=== PATIENT | female | born 1990 | race African-American/Black ===

== ENCOUNTER 2021-06-24 19:00 | Inpatient (IN) | payer OTHER ==
[2021-06-24] MEDS ORDERED: DINOPROSTONE 10 MG VAGINAL SUPPOSITORY VG ONE (20:30)
[2021-06-24 23:00] VITALS: BMI 32.0
[2021-06-25] MEDS: ELECTROLYTE-148 SOLN 1,000 ML IV SCH (04:00)
[2021-06-25] MEDS ORDERED: AMPICILLIN - 2 GM in SODIUM CHLORIDE 100 ML IVPB ONE (08:22)
[2021-06-25] MEDS ORDERED: OXYTOCIN 30 UNITS in 0.9% NS 30 UNIT/500 ML INFUS.BAG IVPB SCH (08:30)
[2021-06-25] MEDS ORDERED: AMPICILLIN SODIUM 2 GM VIAL ONE (08:41)
[2021-06-25] MEDS ORDERED: OXYTOCIN 30 UNITS in 0.9% NS 30 UNIT/500 ML INFUS.BAG IVPB ONE (08:41)
[2021-06-25] MEDS ORDERED: AMPICILLIN SODIUM 1 GM VIAL ONE ×2 (12:54→17:12)
[2021-06-25] MEDS: AMPICILLIN - 1 GM in SODIUM CHLORIDE 100 ML IVPB SCH ×2 (13:00→17:20)
[2021-06-25] MEDS ORDERED: BUPIVACAINE HCL/PF 0.25% (2.5MG/ML) 10 ML VIAL ONE (15:21)
[2021-06-25] MEDS ORDERED: FENTANYL/BUPIVACAINE/NS/PF - PCEA - 50 ML DISP.SYRIN EP ONE (15:23)
[2021-06-25] MEDS ORDERED: NALOXONE HCL 0.4 MG/ML VIAL IVPUSH PRN (15:48)
[2021-06-25] MEDS ORDERED: FENTANYL/BUPIVACAINE/NS/PF - PCEA - 50 ML DISP.SYRIN EP SCH (16:00)
[2021-06-25] MEDS ORDERED: LIDOCAINE 1%/EPI 1:100000 (20 ML MULTI DOSE VIAL) ONE (20:44)
[2021-06-25] MEDS ORDERED: PHENYLEPHRINE HCL 10 MG/1 ML SINGLE DOSE VIAL ONE (20:45)
[2021-06-25] MEDS ORDERED: LIDOCAINE HCL/PF 2% SDV 5ML VIAL ONE ×6 (20:47→21:44)
[2021-06-25] MEDS ORDERED: KETAMINE HCL 500 MG/10 ML VIAL ONE (21:03)
[2021-06-25] MEDS ORDERED: MIDAZOLAM HCL 2 MG/2 ML SINGLE DOSE VIAL ONE (21:12)
[2021-06-25] MEDS ORDERED: PROPOFOL 20 ML ONE ×2 (21:41→21:52)
[2021-06-25] MEDS ORDERED: oxyCODONE HCL 5 MG TABLET PO PRN (21:43)
[2021-06-25] MEDS ORDERED: IBUPROFEN 600 MG TABLET (FP) PO PRN ×2 (21:43→21:55)
[2021-06-25] MEDS ORDERED: SENNOSIDES/DOCUSATE COMBO (SENNA PLUS) TABLET (UD) PO PRN (21:43)
[2021-06-25] MEDS ORDERED: ACETAMINOPHEN 325 MG TABLET (FP) PO PRN ×2 (21:43→21:55)
[2021-06-25] MEDS ORDERED: ACETAMINOPHEN 1000 MG/100 ML VIAL IVPB PRN (21:43)
[2021-06-25] MEDS ORDERED: SIMETHICONE 80 MG TAB.CHEW (FP) PO PRN (21:43)
[2021-06-25] MEDS ORDERED: ONDANSETRON 4 MG/2 ML VIAL IVPB PRN (21:43)
[2021-06-25] MEDS ORDERED: LIDOCAINE HCL 4% TOPICAL SOLN (50 ML/BOTTLE) ONE (21:44)
[2021-06-25] MEDS ORDERED: OXYTOCIN 10 UNITS/ML VIAL ONE ×4 (21:45)
[2021-06-25] MEDS ORDERED: OXYTOCIN 20 UNITS in 0.9% NS 20 UNIT/1,000 ML INFUS.BAG IV SCH (21:45)
[2021-06-25] MEDS ORDERED: ONDANSETRON 4 MG/2 ML VIAL IVPUSH PRN (21:55)
[2021-06-25] MEDS: IBUPROFEN 800 MG/8 ML IJ IVPB PRN (22:00)
[2021-06-25] MEDS ORDERED: IBUPROFEN 800 MG/8 ML IJ IVPB ONE (22:08)
[2021-06-25] MEDS ORDERED: OXYTOCIN 20 UNITS in 0.9% NS 20 UNIT/1,000 ML INFUS.BAG IV ONE (22:09)
[2021-06-26] MEDS: AMPICILLIN - 1 GM in SODIUM CHLORIDE 100 ML IVPB SCH ×2 (01:45→01:46)
[2021-06-26] MEDS: ELECTROLYTE-148 SOLN 1,000 ML IV SCH (01:49)
[2021-06-26] MEDS: CEFAZOLIN 2 GM in SODIUM CHLORIDE 100 ML IVPB SCH ×2 (02:08→09:22)
[2021-06-26] MEDS: IBUPROFEN 800 MG/8 ML IJ IVPB PRN (07:57)
[2021-06-26 08:00] LABS: BASO % 0.4 % (0-2.0); EOS % 0.5 % (0-4.5); HEMATOCRIT 26.5 % (32.4-45.2); HEMOGLOBIN 8.4 GM/dL (10.7-15.3); LYMPH % 15.6 % (8-40); MCH 23.9 pg (25.7-33.7); MCHC 31.7 g/dl (32.0-36.0); MEAN CELL VOLUME 75.3 fl (80-96); MEAN PLT VOLUME 7.7 fl (7.5-11.1); MONO % 5.7 % (3.8-10.2); NEUT % 77.8 % (42.8-82.8); PLATELET COUNT 265 10^3/uL (134-434); RBC 3.53 M/mm3 (3.60-5.2); RDW 18.1 % (11.6-15.6); WHITE BLOOD COUNT 11.8 K/mm3 (4.0-10.0)
[2021-06-26] MEDS ORDERED: BISACODYL 10 MG SUPP.RECT RC PRN (21:43)
[2021-06-27] MEDS: ACETAMINOPHEN/CAFFEINE/BUTALBITAL 1 TAB PO PRN (19:13)
[2021-06-28] MEDS: ACETAMINOPHEN/CAFFEINE/BUTALBITAL 1 TAB PO PRN (06:10)
[2021-06-28 11:16] VITALS: BP 120/81; PULSE 88; TEMP 98.2
== END 2021-06-28 13:45 | disposition home or self-care (01) | DRG 788 ==
LOC: JLDR 19:00 → J3W 06-26 01:15
PROVIDERS: ADMIT Specialist; ATTEND Specialist
PROC: 10D00Z1 Extraction of Products of Conception, Low, Open Approach (ICD-10-PCS; principal; 2021-06-25)
DX: O32.8XX0 Maternal care for other malpresentation of fetus, not applicable or unspecified (principal); Z3A.39 39 weeks gestation of pregnancy; Z37.0 Single live birth
CPT/HCPCS: 36415; 82962; 85025; 88307-TC

== ENCOUNTER 2021-07-04 13:33 | Emergency (ER) | payer OTHER ==
[2021-07-04 14:29] VITALS: BP 127/84; PULSE 98; TEMP 97.8; BMI 205.4
== END 2021-07-04 16:52 | disposition home or self-care (01) ==
LOC: JER 13:33
DX: R20.2 Paresthesia of skin (principal)
CPT/HCPCS: 99281-25